=== PATIENT | male | born 1955 | race American Indian/Alaskan Native ===

== ENCOUNTER 2021-10-30 13:20 | Emergency (ER) | payer OTHER ==
[2021-10-30] MEDS ORDERED: IBUPROFEN 800 MG TAB PO ONE ×2 (16:31→19:18)
[2021-10-30] MEDS ORDERED: HYDROcodone/ACETAMINOPHEN 5-325 MG TAB PO ONE (16:31)
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
[2021-10-30] MEDS ORDERED: oxyCODONE /ACETAMINOPHEN 5-325MG TAB PO ONE (19:18)
[2021-10-30 20:01] VITALS: BP 133/85
== END 2021-10-30 19:59 | disposition home or self-care (01) ==
LOC: ED 13:20
DX: S52.202A Unspecified fracture of shaft of left ulna, initial encounter for closed fracture (principal); I10 Essential (primary) hypertension; E11.8 Type 2 diabetes mellitus with unspecified complications; R07.89 Other chest pain; W22.11XA Striking against or struck by driver side automobile airbag, initial encounter; V89.2XXA Person injured in unspecified motor-vehicle accident, traffic, initial encounter; Y93.89 Activity, other specified; Y92.89 Other specified places as the place of occurrence of the external cause; Y99.8 Other external cause status
CPT/HCPCS: 71045; 93005; 99284